=== PATIENT | female | born 1970 | race Caucasian/White ===

== ENCOUNTER → 2016-06-07 | Outpatient (CLI) | payer OTHER ==
[~2016-06-07] MED LIST: ASPIR 8181 MG PO; CRESTOR10 MG PO; ISOSORBIDE DINI30 MG PO; LEXAPRO10 MG PO; METOPROLOL TART25 MG PO; NEURONTIN600 MG PO; NITROGLYCERIN4.9 GM TL; NORVASC 5 MG TAB5 MG PO; PRILOSEC OTC20 MG PO; SYNTHROID75 MCG PO; XYZAL5 MG PO
[2016-06-07 13:33] LABS: HEMOGLOBIN 13.3 gm/dl (12.3-15.3); RED BLOOD COUNT 4.35 M/UL (4.00-5.10); WHITE BLOOD COUNT 7.8 K/UL (4.5-11.0)
[2016-06-07 13:51] LABS: BUN/CREATININE RATIO 20 (0-10)
== END ==
PROVIDERS: Internal Medicine
DX: Z01.818 Encounter for other preprocedural examination (principal)
CPT/HCPCS: 36415; 80048; 85025; 85610; 85730; 93005

== ENCOUNTER → 2016-06-08 | Outpatient (CLI) | payer OTHER | END | disposition home or self-care (01) | DX: I20.8 Other forms of angina pectoris (principal); R07.9 Chest pain, unspecified; R94.39 Abnormal result of other cardiovascular function study; I10 Essential (primary) hypertension; F17.210 Nicotine dependence, cigarettes, uncomplicated; E78.5 Hyperlipidemia, unspecified; R06.02 Shortness of breath; F41.9 Anxiety disorder, unspecified; Z88.1 Allergy status to other antibiotic agents; Z88.8 Allergy status to other drugs, medicaments and biological substances; Z79.82 Long term (current) use of aspirin; Z79.899 Other long term (current) drug therapy; F10.10 Alcohol abuse, uncomplicated | CPT/HCPCS: C1769; C1894; J1644; J2250; J3010; J7030; Q9963 ==